=== PATIENT | female | born 1935 | race Hispanic/Latino ===

== ENCOUNTER 2018-10-18 17:23 | Inpatient (IN) | payer MEDICARE ==
[2018-10-18] MEDS ORDERED: Vancomycin 1 g Inj ONE (18:14)
--- NOTE | 2018-10-18 18:36 | ED PDOC ---
Lower Extremity Pain/Injury Time Seen by Provider: 10/18/18 17:51 Chief Complaint (Nursing): Lower Extremity Problem/Injury Chief Complaint (Provider): L leg cellulitis History Per: Patient Additional Complaint(s): Pt sent by Dr. Crockett (Podiatry) for admission for IV antibiotics. Pt reports redness and swelling to LLE X months, was prescribed Silvadene and [place] topical without improvement. Denies fever. Past Medical History Reviewed: Nursing Documentation, Vital Signs Vital Signs: Last Vital Signs Temp 97.5 F L 10/18/18 17:28 Pulse 84 10/18/18 17:28 Resp 18 10/18/18 17:28 BP 144/56 L 10/18/18 17:28 Pulse Ox 97 10/18/18 17:28 - Medical History PMH: Diabetes, HTN, Hyperlipidemia Denies: Chronic Kidney Disease - Family History Family History: States: Unknown Family Hx - Allergies Allergies/Adverse Reactions: Allergies Allergy/AdvReac Type Severity Reaction Status Date / Time No Known Allergies Allergy Verified 10/18/18 17:27 Review of Systems Constitutional: Negative for: Fever, Chills Skin: Positive for: Rash Neurological: Negative for: Weakness, Numbness, Headache Physical Exam - Reviewed Nursing Documentation Reviewed: Yes Vital Signs Reviewed: Yes - Physical Exam Appears: Positive for: Well, No Acute Distress Head Exam: Positive for: ATRAUMATIC, NORMAL INSPECTION Skin: Positive for: Normal Color, Warm, Dry Eye Exam: Positive for: Normal appearance, EOMI, PERRL Cardiovascular/Chest: Positive for: Regular Rate, Rhythm Respiratory: Positive for: Normal Breath Sounds Extremity: Positive for: Tenderness, Pedal Edema, Swelling, Other (LLE: Circumferential erythem/edema lower leg, serous drainage, no bleeding, no fluctuance, irritation). Negative for: Deformity Neurological/Psych: Positive for: Awake, Alert, Oriented (X 3). Negative for: Motor/Sensory Deficits - ECG O2 Sat by Pulse Oximetry: 97 Medical Decision Making Medical Decision Makin yo female with LLE cellulitis - labs - EKG - CXR - XR L tib-fib - Vancomycin - Podiatry consult 18:20 Case discussed with Podiatry resident. 18:[address] Nelson, admit. Disposition - Clinical Impression Clinical Impression: Cellulitis, Venous stasis dermatitis of left lower extremity - Patient ED Disposition Is Patient to be Admitted: Yes - Disposition Disposition Time: 18:42 Condition: STABLE - Pt Status Changed To: Hospital Disposition Of: Inpatient - Admit Certification Admit to Inpatient:: After my assessment, the patient will require hospitalization for at least two midnights. This is because of the severity of symptoms shown, intensity of services needed, and/or the medical risk in this patient being treated as an outpatient. - POA Present On Arrival: None
[2018-10-18] MEDS ORDERED: Piperacillin/Tazobact 3.375 GM in Sodium Chloride 0.9% 100 ML IVPB STA (18:40)
[2018-10-18 18:45] LABS: BASO % 0.7 % (0.0-2.0); EOS # 0.2 K/uL (0.0-0.7); EOS % 3.1 % (0.0-4.0); HEMOGLOBIN 10.4 g/dL (12.0-16.0); LYMPH # 1.8 K/uL (1.0-4.3); LYMPH % 25.7 % (20.0-40.0); MEAN CORPUSCULAR HGB CONC 32.5 g/dL (33.0-37.0); MEAN PLATELET VOLUME 8.6 fl (7.2-11.7); MONO # 0.4 K/uL (0.0-0.8); MONO % 6.4 % (0.0-10.0); NEUT # 4.4 K/uL (1.8-7.0); NEUT % 64.1 % (50.0-75.0); RBC 3.59 Mil/uL (3.80-5.20); RED CELL DISTRIBUTION WIDTH 14.6 % (11.5-14.5); WHITE BLOOD COUNT 6.8 K/uL (4.8-10.8)
[2018-10-18 18:48] LABS: ALB/GLOB RATIO 1.4 (1.0-2.1); ALBUMIN 4.8 g/dL (3.5-5.0); CALCIUM 9.3 mg/dL (8.4-10.2)
[2018-10-18 19:01] LABS: PROTHROMBIN TIME 11.1 Seconds (9.8-13.1)
[2018-10-18 19:03] LABS: PARTIAL THROMBOPLASTIN TIME 33.7 Seconds (25.6-37.1)
[2018-10-18] MEDS ORDERED: Piperacillin/Tazobact 3.375 gm Inj IVPB ONE (20:43)
[2018-10-19] MEDS ORDERED: Dextrose 50% SYRINGE Inj (50 ml) IV PRN (00:20)
[2018-10-19] MEDS ORDERED: Glucagon Recombinant 1 mg Inj IM PRN (00:20)
[2018-10-19 04:39] VITALS: BMI 50.6
[2018-10-19 07:45] LABS: BASO % 1.2 % (0.0-2.0); EOS # 0.2 K/uL (0.0-0.7); EOS % 4.8 % (0.0-4.0); HEMOGLOBIN 9.5 g/dL (12.0-16.0); LYMPH # 0.9 K/uL (1.0-4.3); LYMPH % 22.3 % (20.0-40.0); MEAN CELL VOLUME 88.1 fl (81.0-99.0); MEAN CORPUSCULAR HEMOGLOBIN 29.8 pg (27.0-31.0); MEAN CORPUSCULAR HGB CONC 33.8 g/dL (33.0-37.0); MEAN PLATELET VOLUME 8.9 fl (7.2-11.7); MONO # 0.3 K/uL (0.0-0.8); MONO % 6.3 % (0.0-10.0); NEUT # 2.7 K/uL (1.8-7.0); NEUT % 65.4 % (50.0-75.0); NRBC % 0.1 % (0.0-0.0); RBC 3.19 Mil/uL (3.80-5.20); RED CELL DISTRIBUTION WIDTH 14.8 % (11.5-14.5); WHITE BLOOD COUNT 4.1 K/uL (4.8-10.8)
[2018-10-19 07:56] LABS: ALB/GLOB RATIO 1.4 (1.0-2.1); ALBUMIN 4.1 g/dL (3.5-5.0); CALCIUM 8.9 mg/dL (8.4-10.2)
--- NOTE | 2018-10-19 08:29 | RAD ---
Date of service: 10/18/2018 HISTORY: Cellulitis COMPARISON: None available. FINDINGS: BONES: Normal. No fracture. JOINTS: Normal. No osteoarthritis. SOFT TISSUE: Circumferential edema compatible with cellulitis. OTHER FINDINGS: None . IMPRESSION: Circumferential edema compatible with cellulitis.
--- NOTE | 2018-10-19 08:35 | RAD ---
Date of service: 10/18/2018 PROCEDURE: CHEST RADIOGRAPH, 1 VIEW HISTORY: Admission COMPARISON: None available. FINDINGS: LUNGS: Mild interstitial changes. PLEURA: No pneumothorax or pleural fluid seen. CARDIOVASCULAR: Aortic calcifications per normal. OSSEOUS STRUCTURES: No significant abnormalities. VISUALIZED UPPER ABDOMEN: Normal. OTHER FINDINGS: None. IMPRESSION: Mild interstitial changes.
[2018-10-19] MEDS ORDERED: Enoxaparin 30 mg Syringe SC SCH (09:00)
[2018-10-19] MEDS: Insulin Regular 100 units/ml SC SCH ×4 (09:30→21:43)
--- NOTE | 2018-10-19 11:44 | CP.PCM.CON ---
History of Present Illness - History of Present Illness History of Present Illness: Podiatry progress note - Dr. Morton 83F with pmhx of HTN, HLD, and DM seen and evaluated at bedside for left lower extremity redness and pain. States that she is a patient of Dr. Sullivan and was sent in from the office yesterday for IV abx. She was on a course of PO abx over the past week and the redness in her legs was not going down. States she has had chronic leg wounds for about a year. Denies n/v/f/c/sob/cp and has no o ther pedal complaints. PMHx: above PSHx: hysterectomy All: NKDA Past Patient History - Past Medical History & Family History Past Medical History?: Yes - Past Social History Smoking Status: Former Smoker - CARDIAC Hx Cardiac Disorders: Yes Hx Hypertension: Yes - PULMONARY Hx Respiratory Disorders: No - NEUROLOGICAL Hx Neurological Disorder: No - HEENT Hx HEENT Problems: No - RENAL Hx Chronic Kidney Disease: Yes Other/Comment: CKD - ENDOCRINE/METABOLIC Hx Endocrine Disorders: Yes Hx Diabetes Mellitus Type 2: Yes - HEMATOLOGICAL/ONCOLOGICAL Hx Blood Disorders: No - INTEGUMENTARY Hx Dermatological Problems: Yes Hx Cellulitis: Yes - MUSCULOSKELETAL/RHEUMATOLOGICAL Hx Falls: No - GASTROINTESTINAL Hx Gastrointestinal Disorders: No - GENITOURINARY/GYNECOLOGICAL Hx Genitourinary Disorders: No - PSYCHIATRIC Hx Psychophysiologic Disorder: No Hx Substance Use: No - SURGICAL HISTORY Hx Surgeries: Yes Hx Hysterectomy: Yes Other/Comment: nodule removal from both breasts in 1981. - ANESTHESIA Hx Anesthesia: Yes Hx Anesthesia Reactions: No Hx Malignant Hyperthermia: No Meds Allergies/Adverse Reactions: Allergies Allergy/AdvReac Type Severity Reaction Status Date / Time No Known Allergies Allergy Verified 10/18/18 17:27 - Medications Medications: Current Medications Amlodipine Besylate (Norvasc) 5 mg PO HS [facility] Dextrose (Dextrose 50% Inj) 0 ml IV STAT PRN; Protocol PRN Reason: Hypoglycemia Protocol Dextrose (Glutose 15) 0 gm PO ONCE PRN; Protocol PRN Reason: Hypoglycemia Protocol Enoxaparin Sodium (Lovenox) 30 mg SC DAILY [facility]; Protocol Glucagon (Glucagen Diagnostic Kit) 0 mg IM STAT PRN; Protocol PRN Reason: Hypoglycemia Protocol Insulin Human Regular (Humulin R) 0 units SC ACHS [facility]; Protocol Last Admin: 10/19/18 11:32 Dose: Not Given Lisinopril (Zestril) 20 mg PO DAILY [facility] Last Admin: 10/19/18 09:31 Dose: 20 mg Metformin HCl (Glucophage) 500 mg PO BIDWM [facility] Last Admin: 10/19/18 09:30 Dose: 500 mg Pravastatin Sodium (Pravachol) 40 mg PO HS [facility] Sitagliptin Phosphate (Januvia) 50 mg PO DAILY [facility] Last Admin: 10/19/18 09:31 Dose: 50 mg Physical Exam - Constitutional Appears: Well, Non-toxic, No Acute Distress - Head Exam Head Exam: ATRAUMATIC, NORMOCEPHALIC - Extremities Exam Additional comments: VASC: DP and PT pulses palpable; cap refill <3 seconds to all digits; temp gradient wnl; mild nonpitting edema noted b/l DERM: no open lesions present; superificial venous stasis ulcerations present, no depth appreciated, erythema present to mid leg b/l left>right ORTHO: mild pain on palpation of left lower extremity midleg NEURO: gross and protective sensation intact - Neurological Exam Neurological exam: Alert, Oriented x3 - Psychiatric Exam Psychiatric exam: Normal Affect, Normal Mood Results - Vital Signs Recent Vital Signs: Last Vital Signs Temp 97.9 F 10/19/18 08:06 Pulse 70 10/19/18 09:31 Resp 19 10/19/18 08:06 BP 126/60 10/19/18 09:31 Pulse Ox 97 10/19/18 08:06 - Labs Result Diagrams: 10/19/18 05:30 10/19/18 05:30 Labs: Laboratory Results - last 24 hr 10/18/18 10/18/18 10/18/18 18:26 18:26 18:26 WBC 6.8 RBC 3.59 L Hgb 10.4 L Hct 32.0 L MCV 89.0 MCH 29.0 MCHC 32.5 L RDW 14.6 H Plt Count 279 MPV 8.6 Neut % (Auto) 64.1 Lymph % (Auto) 25.7 Rice % (Auto) 6.4 Eos % (Auto) 3.1 Baso % (Auto) 0.7 Neut # (Auto) 4.4 Lymph # (Auto) 1.8 Rice # (Auto) 0.4 Eos # (Auto) 0.2 Baso # (Auto) 0.0 ESR 71 H PT 11.1 INR 1.0 APTT 33.7 Sodium 141 Potassium 4.5 Chloride 104 Carbon Dioxide 21 L Anion Gap 21 H BUN 34 H Creatinine 1.5 H Est GFR ( Amer) 40 Est GFR (Non-Af Amer) 33 POC Glucose (mg/dL) Random Glucose 180 H Calcium 9.3 Total Bilirubin 0.4 AST 21 ALT 26 Alkaline Phosphatase 59 Total Protein 8.2 Albumin 4.8 Globulin 3.4 Albumin/Globulin Ratio 1.4 10/18/18 10/19/18 10/19/18 19:28 05:30 05:30 WBC 4.1 L RBC 3.19 L Hgb 9.5 L Hct 28.1 L MCV 88.1 MCH 29.8 MCHC 33.8 RDW 14.8 H Plt Count 235 MPV 8.9 Neut % (Auto) 65.4 Lymph % (Auto) 22.3 Rice % (Auto) 6.3 Eos % (Auto) 4.8 H Baso % (Auto) 1.2 Neut # (Auto) 2.7 Lymph # (Auto) 0.9 L Rice # (Auto) 0.3 Eos # (Auto) 0.2 Baso # (Auto) 0.0 ESR PT INR APTT Sodium 140 Potassium 4.8 Chloride 105 Carbon Dioxide 22 Anion Gap 18 BUN 30 H Creatinine 1.4 H Est GFR ( Amer) 44 Est GFR (Non-Af Amer) 36 POC Glucose (mg/dL) 138 H Random Glucose 148 H Calcium 8.9 Total Bilirubin 0.5 AST 19 ALT 24 Alkaline Phosphatase 51 Total Protein 7.0 Albumin 4.1 Globulin 2.9 Albumin/Globulin Ratio 1.4 10/19/18 10/19/18 05:40 10:45 WBC RBC Hgb Hct MCV MCH MCHC RDW Plt Count MPV Neut % (Auto) Lymph % (Auto) Rice % (Auto) Eos % (Auto) Baso % (Auto) Neut # (Auto) Lymph # (Auto) Rice # (Auto) Eos # (Auto) Baso # (Auto) ESR PT INR APTT Sodium Potassium Chloride Carbon Dioxide Anion Gap BUN Creatinine Est GFR ( Amer) Est GFR (Non-Af Amer) POC Glucose (mg/dL) 147 H 149 H Random Glucose Calcium Total Bilirubin AST ALT Alkaline Phosphatase Total Protein Albumin Globulin Albumin/Globulin Ratio Assessment & Plan - Assessment and Plan (Free Text) Assessment: 83F with pmhx of HTN, HLD, DM with left LE cellulitis and chronic superificial venous stasis ulceration Plan: Patient seen and evaluated Discussed in detail with Dr. Selene IVEY, absent leukocytosis ID consulted - recs appreciated Tib/fib x-ray taken - edema compatible with cellulitis Wounds left open today Silvadene ordered Will follow while patient in house Thank you for the consult - Date & Time Date: 10/19/18 Time: 11:54
[2018-10-19 12:56] LABS: T3 1.02 nmol/L (1.49-2.60)
[2018-10-19] MEDS: Ammonium Lactate 12% Cream (140 g) TOP SCH (17:00)
[2018-10-19] MEDS: Silver Sulfadiazine 1% Cream (20 gm) TOP SCH (17:01)
[2018-10-19] MEDS: Enoxaparin 60 mg Syringe SC SCH (17:01)
--- NOTE | 2018-10-19 17:01 | CP.PCM.PN ---
Subjective - Date & Time of Evaluation Date of Evaluation: 10/19/18 Time of Evaluation: 17:00 - Subjective Subjective: I D NOTE PATIENT EXAMINED ,CHART REVIEWED FULL CONSULT DICTATED ' START RX c VANCOMYCIN/ZOSYN BOTH IN ADJUSTED RENAL DOSE Objective - Vital Signs/Intake and Output Vital Signs (last 24 hours): Temp Pulse Resp BP Pulse Ox 97.6 F 76 20 126/66 96 10/19/18 16:57 10/19/18 16:57 10/19/18 16:57 10/19/18 16:57 10/19/18 16:57 - Medications Medications: Current Medications Amlodipine Besylate (Norvasc) 5 mg PO HS [facility] Dextrose (Dextrose 50% Inj) 0 ml IV STAT PRN; Protocol PRN Reason: Hypoglycemia Protocol Dextrose (Glutose 15) 0 gm PO ONCE PRN; Protocol PRN Reason: Hypoglycemia Protocol Enoxaparin Sodium (Lovenox) 60 mg SC DAILY [facility]; Protocol Glucagon (Glucagen Diagnostic Kit) 0 mg IM STAT PRN; Protocol PRN Reason: Hypoglycemia Protocol Vancomycin HCl 500 mg/ Sodium (Chloride) 100 mls @ 100 mls/hr IVPB Q12 [facility]; Protocol Piperacillin Sod/Tazobactam (Sod 2.25 gm/ Sodium Chloride) 100 mls @ 100 mls/hr IVPB Q12 [facility]; Protocol Insulin Human Regular (Humulin R) 0 units SC ACHS [facility]; Protocol Last Admin: 10/19/18 11:32 Dose: Not Given Lactic Acid (Lac-Hydrin 12% Cream (140 G)) 1 ea TOP BID [facility] Lisinopril (Zestril) 20 mg PO DAILY [facility] Last Admin: 10/19/18 09:31 Dose: 20 mg Metformin HCl (Glucophage) 500 mg PO BIDWM [facility] Last Admin: 10/19/18 16:40 Dose: 500 mg Pravastatin Sodium (Pravachol) 40 mg PO HS [facility] Silver Sulfadiazine (Silvadene 1% 20 Gm) 1 ea TOP DAILY [facility] Sitagliptin Phosphate (Januvia) 50 mg PO DAILY [facility] Last Admin: 10/19/18 09:31 Dose: 50 mg - Labs Labs: 10/19/18 05:30 10/19/18 05:30 PT 11.1 Seconds (9.8-13.1) 10/18/18 18:26 INR 1.0 10/18/18 18:26 APTT 33.7 Seconds (25.6-37.1) 10/18/18 18:26
--- NOTE | 2018-10-19 21:11 | CARD ---
APPROVED REPORT Date of service: 10/18/2018 EKG Measurement Heart [id number] <Conclusion> Normal sinus rhythm Left bundle branch block Abnormal ECG
[2018-10-19] MEDS: Pravastatin Sodium 40 MG TAB PO SCH (21:41)
--- NOTE | 2018-10-20 03:30 | CON ---
DATE: 10/19/2018 INFECTIOUS DISEASE CONSULTATION HISTORY OF PRESENT ILLNESS: The patient is an 83-year-old female with history of diabetes, chronic renal disease, hyperlipidemia, hypertension, and diabetes. The patient has had problems with left lower extremity cellulitis, has been treated by Podiatry for sometime and apparently having wrappings done at home. Medications were changed and there has been some change in result at the present time. She denies any fever or history of chills. PHYSICAL EXAMINATION: GENERAL: She is alert, cooperative and oriented to time and place. NECK: Supple. LUNGS: Decreased breath sounds. HEART: Regular sinus rhythm. ABDOMEN: Positive bowel sounds. Soft. EXTREMITIES: Just below the left knee and after including the extension of her foot, she has erythema and skin dry with some breakdown. I did not see any ulceration. She states there has been improvement since she received the IV antibiotics. LABORATORY DATA: There is no microbiology or cultures available. Creatinine is 1.4, GFR is 36. Triglycerides are 158. T3 is 1.02. Blood sugar is 124. White count is 4.1 and her sed rate is 71. ASSESSMENT AND PLAN: At the present time, we will continue treatment with intravenous Zosyn and vancomycin. We will treat vancomycin 500 mg intravenous piggyback every 12 hours and Zosyn 2.275 g intravenous piggyback every 12 hours. For now, we will follow up with the patient and check cultures and clinical results. Jesus Corrales MD
[2018-10-20] MEDS: Insulin Regular 100 units/ml SC SCH ×3 (08:55→16:45)
[2018-10-20] MEDS: Silver Sulfadiazine 1% Cream (20 gm) TOP SCH (08:56)
[2018-10-20] MEDS: Enoxaparin 60 mg Syringe SC SCH (08:56)
[2018-10-20] MEDS: Ammonium Lactate 12% Cream (140 g) TOP SCH ×2 (08:56→16:57)
--- NOTE | 2018-10-20 12:10 | CP.PCM.PN ---
Subjective - Date & Time of Evaluation Date of Evaluation: 10/20/18 Time of Evaluation: 12:08 - Subjective Subjective: Podiatry progress note - Dr. Morton 83F seen and evaluated at bedside this AM. Resting comfortably. Legs dependent off bed. States she is in no pain to her legs and did not notice any drainage or wetness on her sheets overnight. Denies n/v/f/c/sob/cp and has no other acute complaints. Objective - Vital Signs/Intake and Output Vital Signs (last 24 hours): Temp Pulse Resp BP Pulse Ox 97.6 F 64 19 125/74 94 L 10/20/18 08:30 10/20/18 09:30 10/20/18 08:30 10/20/18 09:30 10/20/18 08:30 - Medications Medications: Current Medications Amlodipine Besylate (Norvasc) 5 mg PO HS [facility] Last Admin: 10/19/18 21:38 Dose: 5 mg Dextrose (Dextrose 50% Inj) 0 ml IV STAT PRN; Protocol PRN Reason: Hypoglycemia Protocol Dextrose (Glutose 15) 0 gm PO ONCE PRN; Protocol PRN Reason: Hypoglycemia Protocol Enoxaparin Sodium (Lovenox) 60 mg SC DAILY [facility]; Protocol Last Admin: 10/20/18 08:56 Dose: 60 mg Glucagon (Glucagen Diagnostic Kit) 0 mg IM STAT PRN; Protocol PRN Reason: Hypoglycemia Protocol Vancomycin HCl 500 mg/ Sodium (Chloride) 100 mls @ 100 mls/hr IVPB Q12 [facility]; Protocol Last Admin: 10/20/18 09:29 Dose: 100 mls/hr Piperacillin Sod/Tazobactam (Sod 2.25 gm/ Sodium Chloride) 100 mls @ 100 mls/hr IVPB Q12 [facility]; Protocol Last Admin: 10/20/18 08:57 Dose: 100 mls/hr Insulin Human Regular (Humulin R) 0 units SC ACHS [facility]; Protocol Last Admin: 10/20/18 08:55 Dose: Not Given Lactic Acid (Lac-Hydrin 12% Cream (140 G)) 1 ea TOP BID [facility] Last Admin: 10/20/18 08:56 Dose: 1 applic Lisinopril (Zestril) 20 mg PO DAILY [facility] Last Admin: 10/20/18 09:30 Dose: 20 mg Metformin HCl (Glucophage) 500 mg PO BIDWM [facility] Last Admin: 10/20/18 08:55 Dose: 500 mg Pravastatin Sodium (Pravachol) 40 mg PO HS [facility] Last Admin: 10/19/18 21:41 Dose: 40 mg Silver Sulfadiazine (Silvadene 1% 20 Gm) 1 ea TOP DAILY [facility] Last Admin: 10/20/18 08:56 Dose: 1 applic Sitagliptin Phosphate (Januvia) 50 mg PO DAILY [facility] Last Admin: 10/20/18 08:55 Dose: 50 mg - Labs Labs: 10/19/18 05:30 10/19/18 05:30 PT 11.1 Seconds (9.8-13.1) 10/18/18 18:26 INR 1.0 10/18/18 18:26 APTT 33.7 Seconds (25.6-37.1) 10/18/18 18:26 - Constitutional Appears: Well, Non-toxic - Head Exam Head Exam: ATRAUMATIC - Extremities Exam Additional comments: B/l LE exam VASC: DP and PT pulses palpable; cap refill <3 seconds to all digits; temp gradient wnl; mild nonpitting edema noted b/l DERM: no open lesions present; superificial venous stasis ulcerations present, no depth appreciated, erythema present to mid leg b/l left>right ORTHO: mild pain on palpation of left lower extremity midleg NEURO: gross and protective sensation intact - Neurological Exam Neurological Exam: Alert, Awake, Oriented x3 - Psychiatric Exam Psychiatric exam: Normal Affect, Normal Mood Assessment and Plan - Assessment and Plan (Free Text) Assessment: 83F with left LE cellulitis and chronic superificial venous stasis ulceration Plan: Patient seen and evaluated Discussed in detail with Dr. Morton VSS, absent leukocytosis Continue abx per ID Tib/fib x-ray taken - edema compatible with cellulitis Wounds left open today Silvadene applied Will follow while patient in house No podiatric surgical intervention Further recs per Dr. Morton
--- NOTE | 2018-10-20 19:41 | CP.PCM.HP ---
History of Present Illness - History of Present Illness History of Present Illness: This is an 83 y/o female with hx of DM 2 Obesity and recurrent cellulitis was admitted for increasing redness of left lower leg. She was seen by her Locomotive Inspector and advised Er eval. She denies any fever but there was a lot of tenderness on the left leg. Th eright lower leg also showed a chronic erythematous rash . She claims to have used Silvadene cream but to no avail. No recent vascular studies of lower extremities Medical Hx DM 2 HTN HYperlipidemia Present on Admission - Present on Admission Any Indicators Present on Admission: No History of DVT/PE: No History of Uncontrolled Diabetes: No Urinary Catheter: No Decubitus Ulcer Present: No Past Patient History - Past Medical History & Family History Past Medical History?: Yes - Past Social History Smoking Status: Former Smoker - CARDIAC Hx Cardiac Disorders: Yes Hx Hypertension: Yes - PULMONARY Hx Respiratory Disorders: No - NEUROLOGICAL Hx Neurological Disorder: No - HEENT Hx HEENT Problems: No - RENAL Hx Chronic Kidney Disease: Yes Other/Comment: CKD - ENDOCRINE/METABOLIC Hx Endocrine Disorders: Yes Hx Diabetes Mellitus Type 2: Yes - HEMATOLOGICAL/ONCOLOGICAL Hx Blood Disorders: No - INTEGUMENTARY Hx Dermatological Problems: Yes Hx Cellulitis: Yes - MUSCULOSKELETAL/RHEUMATOLOGICAL Hx Falls: No - GASTROINTESTINAL Hx Gastrointestinal Disorders: No - GENITOURINARY/GYNECOLOGICAL Hx Genitourinary Disorders: No - PSYCHIATRIC Hx Psychophysiologic Disorder: No Hx Substance Use: No - SURGICAL HISTORY Hx Surgeries: Yes Hx Hysterectomy: Yes Other/Comment: nodule removal from both breasts in 1981. - ANESTHESIA Hx Anesthesia: Yes Hx Anesthesia Reactions: No Hx Malignant Hyperthermia: No Meds Allergies/Adverse Reactions: Allergies Allergy/AdvReac Type Severity Reaction Status Date / Time No Known Allergies Allergy Verified 10/18/18 17:27 Physical Exam - Constitutional Additional comments: morbidly obese - Head Exam Head Exam: NORMAL INSPECTION - Eye Exam Eye Exam: Normal appearance - ENT Exam ENT Exam: Mucous Membranes Moist - Respiratory Exam Respiratory Exam: Clear to Auscultation Bilateral - Cardiovascular Exam Cardiovascular Exam: REGULAR RHYTHM - GI/Abdominal Exam GI & Abdominal Exam: Normal Bowel Sounds - Neurological Exam Neurological exam: CN II-XII Intact - Psychiatric Exam Psychiatric exam: Normal Mood - Skin Skin Exam: Dry, Erythema Additional comments: trace edema bilateral lower extremities Results - Vital Signs Recent Vital Signs: Last Vital Signs Temp 97.6 F 10/20/18 17:20 Pulse 76 10/20/18 17:20 Resp 20 10/20/18 17:20 BP 144/72 10/20/18 17:20 Pulse Ox 97 10/20/18 17:20 - Labs Result Diagrams: 10/19/18 05:30 10/19/18 05:30 Labs: Laboratory Results - last 24 hr 10/19/18 10/19/18 10/20/18 17:32 21:20 04:14 ESR POC Glucose (mg/dL) 112 H 133 H Procalcitonin 0.09 L 10/20/18 10/20/18 10/20/18 06:00 09:53 15:48 ESR 69 H POC Glucose (mg/dL) 165 H 125 H Procalcitonin Assessment & Plan (1) Cellulitis Status: Acute (2) Venous stasis dermatitis of left lower extremity Status: Acute (3) Diabetes mellitus type 2 in obese Status: Acute (4) Hypertension Status: Acute - Assessment and Plan (Free Text) Plan: Cont meds Con ttx IV antibitoics Inf disease eval sed rate A1c lipid tsh arterial doppler studies
--- NOTE | 2018-10-20 19:49 | CP.PCM.PN ---
Subjective - Date & Time of Evaluation Date of Evaluation: 10/20/18 Time of Evaluation: 13:30 - Subjective Subjective: Patient remains stable Has no fever' WBC is normal. Objective - Vital Signs/Intake and Output Vital Signs (last 24 hours): Temp Pulse Resp BP Pulse Ox 97.6 F 76 20 144/72 97 10/20/18 17:20 10/20/18 17:20 10/20/18 17:20 10/20/18 17:20 10/20/18 17:20 - Medications Medications: Current Medications Amlodipine Besylate (Norvasc) 5 mg PO HS [facility] Last Admin: 10/19/18 21:38 Dose: 5 mg Dextrose (Dextrose 50% Inj) 0 ml IV STAT PRN; Protocol PRN Reason: Hypoglycemia Protocol Dextrose (Glutose 15) 0 gm PO ONCE PRN; Protocol PRN Reason: Hypoglycemia Protocol Enoxaparin Sodium (Lovenox) 60 mg SC DAILY [facility]; Protocol Last Admin: 10/20/18 08:56 Dose: 60 mg Glucagon (Glucagen Diagnostic Kit) 0 mg IM STAT PRN; Protocol PRN Reason: Hypoglycemia Protocol Vancomycin HCl 500 mg/ Sodium (Chloride) 100 mls @ 100 mls/hr IVPB Q12 [facility]; Protocol Last Admin: 10/20/18 09:29 Dose: 100 mls/hr Piperacillin Sod/Tazobactam (Sod 2.25 gm/ Sodium Chloride) 100 mls @ 100 mls/hr IVPB Q12 [facility]; Protocol Last Admin: 10/20/18 08:57 Dose: 100 mls/hr Insulin Human Regular (Humulin R) 0 units SC ACHS [facility]; Protocol Last Admin: 10/20/18 16:45 Dose: Not Given Lactic Acid (Lac-Hydrin 12% Cream (140 G)) 1 ea TOP BID [facility] Last Admin: 10/20/18 16:57 Dose: 1 applic Lisinopril (Zestril) 20 mg PO DAILY [facility] Last Admin: 10/20/18 09:30 Dose: 20 mg Metformin HCl (Glucophage) 500 mg PO BIDWM [facility] Last Admin: 10/20/18 16:58 Dose: 500 mg Pravastatin Sodium (Pravachol) 40 mg PO HS [facility] Last Admin: 10/19/18 21:41 Dose: 40 mg Silver Sulfadiazine (Silvadene 1% 20 Gm) 1 ea TOP DAILY [facility] Last Admin: 10/20/18 08:56 Dose: 1 applic Sitagliptin Phosphate (Januvia) 50 mg PO DAILY [facility] Last Admin: 10/20/18 08:55 Dose: 50 mg - Labs Labs: 10/19/18 05:30 10/19/18 05:30 PT 11.1 Seconds (9.8-13.1) 10/18/18 18:26 INR 1.0 10/18/18 18:26 APTT 33.7 Seconds (25.6-37.1) 10/18/18 18:26 - Head Exam Head Exam: NORMAL INSPECTION - Eye Exam Eye Exam: Normal appearance - ENT Exam ENT Exam: Mucous Membranes Moist - Respiratory Exam Respiratory Exam: Clear to Ausculation Bilateral - Cardiovascular Exam Cardiovascular Exam: REGULAR RHYTHM - GI/Abdominal Exam GI & Abdominal Exam: Normal Bowel Sounds - Extremities Exam Additional comments: redness on both lower ext left more than right very dry skin - Neurological Exam Neurological Exam: Awake - Psychiatric Exam Psychiatric exam: Normal Mood Assessment and Plan (1) Cellulitis Status: Acute (2) Venous stasis dermatitis of left lower extremity Status: Acute (3) Diabetes mellitus type 2 in obese Status: Acute (4) Hypertension Status: Acute - Assessment and Plan (Free Text) Plan: Start IV antibiotics Wound care hydration recheck labs lachydrin lotion vascular studies
[2018-10-20] MEDS: Pravastatin Sodium 40 MG TAB PO SCH (21:46)
[2018-10-21] MEDS: Insulin Regular 100 units/ml SC SCH ×5 (00:15→22:00)
[2018-10-21 06:34] LABS: HEMOGLOBIN 9.2 g/dL (12.0-16.0); MEAN CELL VOLUME 88.5 fl (81.0-99.0); MEAN CORPUSCULAR HEMOGLOBIN 29.7 pg (27.0-31.0); MEAN CORPUSCULAR HGB CONC 33.6 g/dL (33.0-37.0); RBC 3.1 Mil/uL (3.80-5.20); RED CELL DISTRIBUTION WIDTH 14.5 % (11.5-14.5); WHITE BLOOD COUNT 5.2 K/uL (4.8-10.8)
[2018-10-21 06:58] LABS: ALB/GLOB RATIO 1.4 (1.0-2.1); CALCIUM 8.9 mg/dL (8.4-10.2)
--- NOTE | 2018-10-21 08:48 | CP.PCM.PN ---
Subjective - Date & Time of Evaluation Date of Evaluation: 10/21/18 Time of Evaluation: 08:42 - Subjective Subjective: Podiatry progress note - Dr. Morton 83 y/o F patient seen and evaluated at the bedside for b/l LE cellulitis left>right and chronic superificial venous stasis ulceration. Patient was resting comfortably in bed with Legs dependent off bed. She states she is in no pain to her legs but there are some drainage from her left leg. She denies any overnight acute events. She denies any overnight fever, nausea, vomiting, cough, chills or shortness of breathing. She denies any other pedal complaints at this time. Objective - Vital Signs/Intake and Output Vital Signs (last 24 hours): Temp Pulse Resp BP Pulse Ox 97.7 F 73 20 155/69 H 97 10/21/18 07:55 10/21/18 07:55 10/21/18 07:55 10/21/18 07:55 10/21/18 07:55 - Medications Medications: Current Medications Amlodipine Besylate (Norvasc) 5 mg PO HS [facility] Last Admin: 10/20/18 21:47 Dose: 5 mg Dextrose (Dextrose 50% Inj) 0 ml IV STAT PRN; Protocol PRN Reason: Hypoglycemia Protocol Dextrose (Glutose 15) 0 gm PO ONCE PRN; Protocol PRN Reason: Hypoglycemia Protocol Enoxaparin Sodium (Lovenox) 60 mg SC DAILY [facility]; Protocol Last Admin: 10/20/18 08:56 Dose: 60 mg Glucagon (Glucagen Diagnostic Kit) 0 mg IM STAT PRN; Protocol PRN Reason: Hypoglycemia Protocol Vancomycin HCl 500 mg/ Sodium (Chloride) 100 mls @ 100 mls/hr IVPB Q12 [facility]; Protocol Last Admin: 10/20/18 22:57 Dose: 100 mls/hr Piperacillin Sod/Tazobactam (Sod 2.25 gm/ Sodium Chloride) 100 mls @ 100 mls/hr IVPB Q12 [facility]; Protocol Last Admin: 10/20/18 21:42 Dose: 100 mls/hr Insulin Human Regular (Humulin R) 0 units SC ACHS [facility]; Protocol Last Admin: 10/21/18 00:15 Dose: Not Given Lactic Acid (Lac-Hydrin 12% Cream (140 G)) 1 ea TOP BID [facility] Last Admin: 10/20/18 16:57 Dose: 1 applic Lisinopril (Zestril) 20 mg PO DAILY [facility] Last Admin: 10/20/18 09:30 Dose: 20 mg Metformin HCl (Glucophage) 500 mg PO BIDWM [facility] Last Admin: 10/20/18 16:58 Dose: 500 mg Pravastatin Sodium (Pravachol) 40 mg PO HS [facility] Last Admin: 10/20/18 21:46 Dose: 40 mg Silver Sulfadiazine (Silvadene 1% 20 Gm) 1 ea TOP DAILY [facility] Last Admin: 10/20/18 08:56 Dose: 1 applic Sitagliptin Phosphate (Januvia) 50 mg PO DAILY [facility] Last Admin: 10/20/18 08:55 Dose: 50 mg - Labs Labs: 10/21/18 05:35 10/21/18 05:35 PT 11.1 Seconds (9.8-13.1) 10/18/18 18:26 INR 1.0 10/18/18 18:26 APTT 33.7 Seconds (25.6-37.1) 10/18/18 18:26 - Constitutional Appears: Well, Non-toxic, No Acute Distress - Head Exam Head Exam: ATRAUMATIC, NORMOCEPHALIC - Extremities Exam Additional comments: B/l LE focused exam VASC: DP/PT pulses palpable; cap refill <3 seconds to all digits; Temp gradient warm to warm from proximal to distal; mild non-pitting edema noted b/l. NEURO: Gross and protective sensation intact. DERM: No open lesions present; superficial venous stasis ulcerations present, no depth appreciated, erythema present to mid leg b/l left>right. Weeping of serous fluid noted on the left side. ORTHO: Mild pain on palpation of left lower extremity midleg - Neurological Exam Neurological Exam: Alert, Awake, Oriented x3 - Psychiatric Exam Psychiatric exam: Normal Affect, Normal Mood Assessment and Plan - Assessment and Plan (Free Text) Assessment: 83 y/o F patient seen and evaluated at the bedside for b/l LE cellulitis left>right and chronic superificial venous stasis ulceration Plan: Patient seen and evaluated Discussed in detail with Dr. Morton Charts, labs and vitals reviewed; afebrile, absent leukocytosis Continue abx per ID Blood culture; No growth after 48 hours. Tib/fib x-ray taken - edema compatible with cellulitis Applied Silvadene to b/l LE then left LE dressed with DSD and Duane bandage. Podiatry will continue to follow up while patient in house No podiatric surgical intervention
[2018-10-21] MEDS: Silver Sulfadiazine 1% Cream (20 gm) TOP SCH (09:18)
[2018-10-21] MEDS: Ammonium Lactate 12% Cream (140 g) TOP SCH ×2 (09:19→17:28)
[2018-10-21] MEDS: Enoxaparin 60 mg Syringe SC SCH (09:20)
--- NOTE | 2018-10-21 12:03 | US ---
Date of service: 10/19/2018 PROCEDURE: Bilateral lower extremity venous duplex Doppler. HISTORY: left leg cellulitis COMPARISON: None available. TECHNIQUE: Bilateral common femoral, superficial femoral, popliteal and posterior tibial veins were evaluated. Flow was assessed with color Doppler, compressibility, assessment of phasic flow and augmentation response. FINDINGS: COMMON FEMORAL VEIN: Right CFV: Unremarkable. Left CFV: Unremarkable. SUPERFICIAL FEMORAL VEIN: Right SFV: Unremarkable. Left SFV: Unremarkable. POPLITEAL VEIN: Right Popliteal: Unremarkable. Left Popliteal: Unremarkable. POSTERIOR TIBIAL VEIN: Right PTV: Unremarkable. Left PTV: Unremarkable. OTHER FINDINGS: None. IMPRESSION: No evidence of deep venous thrombosis.
--- NOTE | 2018-10-21 14:32 | PQF ---
PROVIDER RESPONSE TEXT: Venous stasis ulcer without varicose vein limited to skin breakdown REVIEWER QUERY TEXT: Skin Ulcer Type and Severity Venous stasis Skin ulcer superficial is documented in the Medical Record. Please specify the typeSuch as: Type: -- Venous stasis ulcer with varicose veins -- Venous stasis ulcer without varicose veins -- Other, please specify Severity: -- Limited to breakdown of skin -- With fat layer exposure -- With necrosis of muscle -- With necrosis of bone -- Other, please specify The patient's Clinical Indicators include: Presents with LLE redness, swelling and pain. Treated as an outpatient without improvement. L Tib/Fib Xray: Edema c/w cellulitis Venous Doppler pending Rx: IVAB, Silvadene Query created by: Sarah Snider on 10/21/2018 7:49 AM Electronically signed by: Hernan Vines 10/21/2018 2:29 PM
--- NOTE | 2018-10-21 18:47 | CP.PCM.PN ---
Subjective - Date & Time of Evaluation Date of Evaluation: 10/21/18 Time of Evaluation: 10:00 - Subjective Subjective: patient seen and examined at bedside. Interim events noted No complaints offered at this time, states improvement from yesterday denies cp/sob/fever/chills. available diagnostic data reviewed Review of Systems All systems: reviewed and no additional remarkable complaints except mentioned above Objective Vital Signs Stable - Constitutional Appears: Non-toxic, No Acute Distress Head Exam: NORMAL INSPECTION Eye Exam: Normal appearance Respiratory Exam: NORMAL BREATHING PATTERN Cardiovascular Exam: +S1, +S2 GI & Abdominal Exam: Soft Neurological Exam: Alert, Awake Psychiatric exam: Normal Affect, Normal Mood Skin Exam: Normal Color, Warm Assessment and Plan monitor vitals monitor labs Cont meds Cont tx consultants appreciated input pending ultrasound of ext dispo planning/id recomendations rest of plan as ordered Objective - Vital Signs/Intake and Output Vital Signs (last 24 hours): Temp Pulse Resp BP Pulse Ox 98.2 F 71 20 135/69 100 10/21/18 16:14 10/21/18 16:14 10/21/18 16:14 10/21/18 16:14 10/21/18 16:14 - Medications Medications: Current Medications Amlodipine Besylate (Norvasc) 5 mg PO HS [facility] Last Admin: 10/20/18 21:47 Dose: 5 mg Dextrose (Dextrose 50% Inj) 0 ml IV STAT PRN; Protocol PRN Reason: Hypoglycemia Protocol Dextrose (Glutose 15) 0 gm PO ONCE PRN; Protocol PRN Reason: Hypoglycemia Protocol Enoxaparin Sodium (Lovenox) 60 mg SC DAILY [facility]; Protocol Last Admin: 10/21/18 09:20 Dose: 60 mg Glucagon (Glucagen Diagnostic Kit) 0 mg IM STAT PRN; Protocol PRN Reason: Hypoglycemia Protocol Vancomycin HCl 500 mg/ Sodium (Chloride) 100 mls @ 100 mls/hr IVPB Q12 [facility]; Protocol Last Admin: 10/21/18 09:19 Dose: 100 mls/hr Piperacillin Sod/Tazobactam (Sod 2.25 gm/ Sodium Chloride) 100 mls @ 100 mls/hr IVPB Q12 [facility]; Protocol Last Admin: 10/21/18 09:20 Dose: 100 mls/hr Insulin Human Regular (Humulin R) 0 units SC ACHS [facility]; Protocol Last Admin: 10/21/18 16:30 Dose: Not Given Lactic Acid (Lac-Hydrin 12% Cream (140 G)) 1 ea TOP BID [facility] Last Admin: 10/21/18 17:28 Dose: 1 applic Lisinopril (Zestril) 20 mg PO DAILY [facility] Last Admin: 10/21/18 09:21 Dose: 20 mg Metformin HCl (Glucophage) 500 mg PO BIDWM [facility] Last Admin: 10/21/18 17:28 Dose: 500 mg Pravastatin Sodium (Pravachol) 40 mg PO HS [facility] Last Admin: 10/20/18 21:46 Dose: 40 mg Silver Sulfadiazine (Silvadene 1% 20 Gm) 1 ea TOP DAILY [facility] Last Admin: 10/21/18 09:18 Dose: 1 applic Sitagliptin Phosphate (Januvia) 50 mg PO DAILY [facility] Last Admin: 10/21/18 09:21 Dose: 50 mg - Labs Labs: 10/21/18 05:35 10/21/18 05:35 PT 11.1 Seconds (9.8-13.1) 10/18/18 18:26 INR 1.0 10/18/18 18:26 APTT 33.7 Seconds (25.6-37.1) 10/18/18 18:26 Assessment and Plan (1) Cellulitis Status: Acute (2) Venous stasis dermatitis of left lower extremity Status: Acute
[2018-10-21] MEDS: Pravastatin Sodium 40 MG TAB PO SCH (22:01)
[2018-10-21 23:54] VITALS: O2SAT 97
[2018-10-22 08:35] VITALS: BP 115/66; PULSE 68; RESP 20; TEMP 97.3
[2018-10-22] MEDS: Insulin Regular 100 units/ml SC SCH (10:47)
[2018-10-22] MEDS: Silver Sulfadiazine 1% Cream (20 gm) TOP SCH (10:48)
[2018-10-22] MEDS: Enoxaparin 60 mg Syringe SC SCH (10:48)
[2018-10-22] MEDS: Ammonium Lactate 12% Cream (140 g) TOP SCH (10:48)
--- NOTE | 2018-10-22 13:01 | CP.PCM.PCO ---
Assessment & Plan - Assessment and Plan (Free Text) Assessment: pt. seen and examined feels well; sitting up in bed, denies fever, chills, sob, reports improved erythema, swelling of b/l LE bld cx neg pt. will require 1 week of Vancomycin 500mg iv q12 and Zosyn 2.25gm iv q 12 for tx cellulitis as per monitor vanco troug/ cbc/cmp pt. for TCU transfer once accepted Above d/w
--- NOTE | 2018-10-22 16:51 | US ---
Date of service: 10/21/2018 PROCEDURE: Duplex ultrasound of the bilateral lower extremity arteries. HISTORY: Cellulitis, type 2 diabetes mellitus. COMPARISON: None available. TECHNIQUE: Grayscale and duplex Doppler evaluation of the bilateral common femoral, superficial femoral, popliteal, posterior tibial and dorsalis pedis arteries was performed.. FINDINGS: RIGHT LOWER EXTREMITY: RIGHT COMMON FEMORAL ARTERY: 30-49% stenosis maximal flow velocity of 189.2 cm/s. RIGHT SUPERFICIAL FEMORAL ARTERY: 30-49% stenosis maximal flow velocity of 158.5 cm/s. RIGHT POPLITEAL ARTERY:Widely patent. Maximal flow velocity of 83.6 cm/s. RIGHT POSTERIOR TIBIAL ARTERY: Widely patent. Maximal flow velocity of 155.8 cm/s. RIGHT DORSALIS PEDIS ARTERY: Widely patent. Maximal flow velocity of 86.5 cm/s. LEFT LOWER EXTREMITY: LEFT COMMON FEMORAL ARTERY: 50-75% stenosis maximal flow velocity of 234.0 cm/s. LEFT SUPERFICIAL FEMORAL ARTERY: 50-75% stenosis maximal flow velocity of 227.6 cm/s. LEFT POPLITEAL ARTERY:50-75% stenosis maximal flow velocity of 246.3 cm/s. LEFT POSTERIOR TIBIAL ARTERY: Widely patent. Maximal flow velocity of 133.3 cm/s. LEFT DORSALIS PEDIS ARTERY: Widely patent. Maximal flow velocity of 125.7 cm/s. OTHER FINDINGS: None. IMPRESSION: Atherosclerotic disease bilaterally left greater than right. Both the extent of disease in the degree of narrowing of vessels of the left lower extremity exceed those of right.
--- NOTE | 2018-10-22 16:52 | PQF ---
PROVIDER RESPONSE TEXT: Ckd stage 3 REVIEWER QUERY TEXT: Kidney Disease, Chronic CKD Stage Chronic Kidney Disease (CKD) is documented in the Medical Record. Please specify the disease stage ( includes probable or suspected) Such as: -- Chronic kidney disease Stage 1 -- Chronic kidney disease Stage 2 -- Chronic kidney disease Stage 3 -- Chronic kidney disease Stage 4 -- Chronic kidney disease Stage 5 -- Chronic kidney disease Stage 5, requiring dialysis -- End Stage Renal Disease -- Other, please specify Stages are defined by the [employer] as follows: CKD Stage I GFR >= 90 ml / min per 1.73 m2 and persistent albuminuria CKD Stage 2 GFR between 60 and 89 with persistent albuminuria CKD Stage 3 GFR between 30 and 59 CKD Stage 4 GFR between 15 and 29 CKD Stage 5 GFR between <15 or End Stage Renal Disease The patient's Clinical Indicators include: BUN: 34, 30, 32 Creatinine 1.5, 1.4, 1.5 GFR: 33, 36, 33 Query created by: Sarah Snider on 10/21/2018 7:52 AM Electronically signed by: Ilan Nelson MD 10/22/2018 4:49 PM
== END 2018-10-22 15:35 | DRG 603 ==
LOC: H.ER 17:23 → H.ERHOLD 18:37 → H.MEDSURG1 21:58
PROVIDERS: ADMIT Family Medicine; ATTEND Family Medicine
DX: L03.116 Cellulitis of left lower limb (principal); L97.921 Non-pressure chronic ulcer of unspecified part of left lower leg limited to breakdown of skin; Z68.43 Body mass index [BMI] 50.0-59.9, adult; L97.919 Non-pressure chronic ulcer of unspecified part of right lower leg with unspecified severity; E66.9 Obesity, unspecified; I87.2 Venous insufficiency (chronic) (peripheral); Z71.3 Dietary counseling and surveillance; L03.115 Cellulitis of right lower limb; N18.3 Chronic kidney disease, stage 3 (moderate); E11.22 Type 2 diabetes mellitus with diabetic chronic kidney disease; I12.9 Hypertensive chronic kidney disease with stage 1 through stage 4 chronic kidney disease, or unspecified chronic kidney disease; E78.5 Hyperlipidemia, unspecified; Z87.891 Personal history of nicotine dependence